=== PATIENT | female | born 1965 | race Two or more races ===

== ENCOUNTER 2017-03-11 20:21 | Emergency (ER) | payer MEDICAID ==
[~2017-03-11] VITALS: Ht 167.6 cm; Wt 84.8 kg
[~2017-03-11 20:21] MED LIST: ACETAMINOPHEN-1 EAC1 ORAL; ANUSOL-HC30 GM RC; CIPROFLOXACIN500 M2 ORAL; COLACE100 MG ORAL; LACTULOSE20 GM/301 ORAL; METRONIDAZOLE500 MG ORAL
[2017-03-11] MEDS ORDERED: NKM (20:30)
[2017-03-11] MEDS ORDERED: Ketorolac 30mg Inj IV ONE (20:45)
--- NOTE | 2017-03-11 20:50 | Emergency Room Report ---
History of Present Illness General Chief Complaint: Headache Source: Patient Present Illness [facility] The patient presents with a headache and sore throat. Headache is severe at this time. She feels it at the top of her head and pounding. She took NyQuil and this didn't help very much. She states is 10/10. Doesn't radiate. She has no neck stiffness or pain. She does have a sore throat and difficulty swallowing things. Slight cough, non-productive. This is the worst headache of her life and she doesn't usually have GARCIA. No vomit but nausea. No change bowels. No rashes, change vision, chest pain, dyspnea, wheezing. Post menopausal. 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 Nursing Documentation: PMH: Agreed, PSxH: Agreed Nursing Documentation-PMH Past Medical History: No Stated History Review of Systems All Other Systems: negative except mentioned in HPI Physical Exam Vital Signs Date Time Temp Pulse Resp B/P Pulse Ox O2 Delivery O2 Flow Rate FiO2 03/11/17 20:25 99.7 88 18 110/58 97 Room Air Sp02 EP Interpretation: reviewed, normal General Appearance: well appearing, no apparent distress, GCS 15 Head: normocephalic, atraumatic Eyes: bilateral eye EOMI, bilateral eye PERRL, bilateral eye normal inspection ENT: normal voice, moist mucus membranes, tonsillar swelling, pharyngeal erythema Neck: supple, no meningismus Respiratory: lungs clear, normal breath sounds Cardiovascular #1: regular rate, rhythm Cardiovascular #2: 2+ radial (R) Gastrointestinal: normal inspection, normal bowel sounds, non tender, no mass, non-distended Musculoskeletal: back normal, gait/station normal, normal range of motion Neurologic: alert, oriented x3, elevated guard III-XII nml as tested, motor strength/tone normal, DTRs symmetric, sensory intact, cerebellar normal, speech normal Psychiatric: mood/affect normal - but in pain Skin: normal inspection, warm/dry Medical Decision Making Diagnostic Impression: Primary Impression: Sinusitis ER Course Patient presents with sore throat fever and worst headache of life. Differential includes viral syndrome, strep pharyngitis, migraine, bleed amongst others. Exam is against meningitis. However the patient is evaluated with labs, CT, chest x-ray. The patient will be treated with IV hydration Tylenol and Toradol. Labs with normal WBC, elevated sed rate, slight elevation glucose, neg UA. CT with sinus disease, no bleed. Antibiotics begun. Patient pain free after treatment. Patient stable for outpatient observation and treatment. Laboratory Tests Test 03/11/17 21:06 White Blood Count 8.0 K/UL (4.8-10.8) Red Blood Count 4.17 M/UL (4.20-5.40) L Hemoglobin 14.0 G/DL (12.0-16.0) Hematocrit 38.2 % (37.0-47.0) Mean Corpuscular Volume 91 FL (80-99) Mean Corpuscular Hemoglobin 33.5 PG (27.0-31.0) H Mean Corpuscular Hemoglobin Concent 36.6 G/DL (32.0-36.0) H Red Cell Distribution Width 11.2 % (11.6-14.8) L Platelet Count 258 K/UL (150-450) Mean Platelet Volume 6.5 FL (6.5-10.1) Neutrophils (%) (Auto) 46.9 % (45.0-75.0) Lymphocytes (%) (Auto) 40.3 % (20.0-45.0) Monocytes (%) (Auto) 7.9 % (1.0-10.0) Eosinophils (%) (Auto) 3.6 % (0.0-3.0) H Basophils (%) (Auto) 1.3 % (0.0-2.0) Erythrocyte Sedimentation Rate 69 MM/HR (0-30) H Prothrombin Time 9.9 SEC (9.30-11.50) Prothrombin Time INR 0.9 (0.9-1.1) PTT 26 SEC (23-33) Urine Color Yellow Urine Appearance Clear Urine pH 7 (4.5-8.0) Urine Specific [place] 1.015 (1.005-1.035) Urine Protein Negative (NEGATIVE) Urine Glucose (UA) Negative (NEGATIVE) Urine Ketones Negative (NEGATIVE) Urine Occult Blood 2+ (NEGATIVE) H Urine Nitrite Negative (NEGATIVE) Urine Bilirubin Negative (NEGATIVE) Urine Urobilinogen Normal MG/DL (0.0-1.0) Urine Leukocyte Esterase Negative (NEGATIVE) Urine RBC 10-15 /HPF (0 - 2) H Urine WBC 2-4 /HPF (0 - 2) Urine Squamous Epithelial Cells Few /LPF (NONE/OCC) Urine Bacteria Few /HPF (NONE) Sodium Level 139 mEQ/L (135-145) Potassium Level 3.6 mEQ/L (3.4-4.9) Chloride Level 100 mEQ/L (98-107) Carbon Dioxide Level 26 mEQ/L (20-30) Anion Gap 13 (5-15) Blood Urea Nitrogen 21 mg/dL (7-23) Creatinine 0.6 mg/dL (0.5-0.9) Estimate Glomerular Filtration Rate > 60 mL/min (>60) Glucose Level 146 mg/dL (74-106) H Lactic Acid Level 1.10 mmol/L (0.66-2.22) Calcium Level 9.4 mg/dL (8.6-10.2) Total Bilirubin 0.2 mg/dL (0.0-1.2) Aspartate Amino Transferase (AST) 18 U/L (5-40) Alanine Aminotransferase (ALT) 21 U/L (3-33) Alkaline Phosphatase 103 U/L (35-104) Total Creatine Kinase 58 U/L (26-140) Total Protein 7.8 g/dL (6.6-8.7) Albumin 3.9 g/dL (3.5-5.2) Globulin 3.9 g/dL Albumin/Globulin Ratio 1.0 (1.0-2.7) EKG Diagnostic Results Rate: normal Rhythm: NSR ST Segments: no acute changes Rhythm Strip Diag. Results EP Interpretation: yes Rhythm: NSR, no PVC's, no ectopy CT/MRI/US Diagnostic Results CT/MRI/US Diagnostic Results : Imaging Test Ordered: head Impression nl brain, sinus disease Last Vital Signs Date Time Temp Pulse Resp B/P Pulse Ox O2 Delivery O2 Flow Rate FiO2 03/12/17 01:07 99.7 68 12 118/72 97 Room Air Status: improved Disposition: HOME, SELF-CARE Condition: Improved Scripts Guaifenesin/Codeine Phos* (ROBITUSSIN AC*) 118 Ml Liquid 1-2 TSP ORAL Q6H Y for For Cough, #118 ML 0 Refills Prov: Matt Dean M.D. 03/12/17 Levofloxacin* (LEVAQUIN*) 500 Mg Tablet 500 MG ORAL DAILY, #7 TAB Prov: Matt Dean M.D. 03/12/17 Matt Dean M.D. Mar 11, 2017 20:50
[2017-03-11 21:34] LABS: BASOPHILS % (AUTO) 1.3 % (0.0-2.0); EOSINOPHILS % (AUTO) 3.6 % (0.0-3.0); LYMPHOCYTES % (AUTO) 40.3 % (20.0-45.0); MEAN CORPUSCULAR HEMOGLOBIN 33.5 PG (27.0-31.0); MEAN CORPUSCULAR HGB CONC 36.6 G/DL (32.0-36.0); MEAN CORPUSCULAR VOLUME 91 FL (80-99); MEAN PLATELET VOLUME 6.5 FL (6.5-10.1); MONOCYTES % (AUTO) 7.9 % (1.0-10.0); NEUTROPHILS % (AUTO) 46.9 % (45.0-75.0); PLATELET COUNT 258 K/UL (150-450); RED BLOOD COUNT 4.17 M/UL (4.20-5.40); RED CELL DISTRIBUTION WIDTH 11.2 % (11.6-14.8)
[2017-03-11 21:45] LABS: INR 0.9 (0.9-1.1); PROTHROMBIN TIME 9.9 SEC (9.30-11.50)
[2017-03-11 21:51] LABS: ALANINE AMINOTRANSFERASE 21 U/L (3-33); ANION GAP 13 (5-15); ASPARTATE AMINO TRANSFERASE 18 U/L (5-40); CALCIUM 9.4 mg/dL (8.6-10.2); CARBON DIOXIDE 26 mEQ/L (20-30); CHLORIDE 100 mEQ/L (98-107); CREATININE 0.6 mg/dL (0.5-0.9); GLOMERULAR FILTRATION RATE > 60 mL/min (>60); HEMOLYSIS 3; POTASSIUM 3.6 mEQ/L (3.4-4.9); SODIUM 139 mEQ/L (135-145); TOTAL PROTEIN 7.8 g/dL (6.6-8.7)
[2017-03-11 21:57] LABS: APPEARANCE,URINE CLEAR; KETONES,URINE NEGATIVE (NEGATIVE); LEUKOCYTE ESTERASE ,URINE NEGATIVE (NEGATIVE); NITRITE,URINE NEGATIVE (NEGATIVE); PH,URINE 7 (4.5-8.0); PROTEIN,URINE NEGATIVE (NEGATIVE); UROBILINOGEN,URINE NORMAL MG/DL (0.0-1.0)
[2017-03-11 22:04] LABS: BACTERIA,URINE FEW /HPF; SQUAMOUS EPITHELIAL CELL,UR FEW /LPF (NONE/OCC)
[2017-03-11 22:07] VITALS: BP 111/64
[2017-03-11 23:02] LABS: ERYTHROCYTE SEDIMENTATION RATE 69 MM/HR (0-30)
[2017-03-12] MEDS ORDERED: Levofloxacin 500mg tab ORAL ONE
[2017-03-12] MEDS ORDERED: LEVAQUIN500 MG ORAL (00:49)
[2017-03-12] MEDS ORDERED: GUAIFENESIN-CO118 M1 ORAL (00:49)
[2017-03-12 01:03] VITALS: BP 118/72
[2017-03-12 01:07] VITALS: BP 118/72
--- NOTE | 2017-03-12 10:55 | Diagnostic Imaging Report ---
Indication: Headache Technique: Contiguous 5 mm thick transaxial imaging of the head obtained in a Siemens Sensation [address] scanner. Soft tissue and bone windows generated. Total Dose length Product (DLP): [address] Dose Index Volume (CTDIvol): 70.38 mGy Comparison: none Findings: The size and configuration of the cortical sulci, basal cisterns, and ventricles are within normal limits for age. There is no mass effect, midline shift, or edema identified. There is no evidence of acute hemorrhage or abnormal intra-axial or extra-axial fluid collections. The bones and soft tissues are unremarkable. Mucosal thickening noted within the paranasal sinuses. Impression: No mass effect, edema or acute bleed. The CT scanner at [facility] is accredited by the [employer] and the scans are performed using dose optimization techniques as appropriate to a performed exam including Automatic Exposure control.
--- NOTE | 2017-03-13 07:27 | Cardiology Report ---
APPROVED REPORT EKG Measurement Heart [id number] CO [id number] Normal sinus rhythm Normal ECG
== END 2017-03-12 01:07 | disposition home or self-care (01) ==
LOC: EMR 20:40
DX: J32.9 Chronic sinusitis, unspecified (principal)
CPT/HCPCS: 36415; 70450; 80053; 81003; 82550; 83605; 85025; 85610; 85651; 85730; 93005; 96360; 96361; 96374; 96375; 99284; J1885

== ENCOUNTER 2020-04-25 08:32 | Emergency (ER) | payer MEDICAID ==
[~2020-04-25] VITALS: Ht 160 cm; Wt 81.6 kg
[~2020-04-25 08:32] MED LIST changes: +GUAIFENESIN-CO118 M1 ORAL; +LEVAQUIN500 MG ORAL; +NKM
[2020-04-25 08:56] VITALS: BP 149/76
[2020-04-25 10:46] LABS: APPEARANCE,URINE CLEAR; GLUCOSE, URINE (UA) NEGATIVE (NEGATIVE); KETONES,URINE NEGATIVE (NEGATIVE); LEUKOCYTE ESTERASE ,URINE NEGATIVE (NEGATIVE); PH,URINE 8 (4.5-8.0); PROTEIN,URINE NEGATIVE (NEGATIVE); UROBILINOGEN,URINE 1 MG/DL (0.0-1.0)
[2020-04-25] MEDS ORDERED: CEPHALEXIN500 MG ORAL (10:49)
[2020-04-25] MEDS ORDERED: PHENAZOPYRIDIN200 MG ORAL (10:49)
[2020-04-25 11:06] LABS: BILIRUBIN, URINE NEGATIVE (NEGATIVE); COLOR,URINE YELLOW; NITRITE,URINE NEGATIVE (NEGATIVE)
--- NOTE | 2020-04-25 11:13 | Emergency Room Report ---
History of Present Illness General Chief Complaint: Female Urogenital Problems Source: Patient Present Illness HPI History of present illness: 55-year-old female with no prior medical history presents with chief complaint of dysuria (feels burning) and increased frequency of urination. The patient's symptoms were gradual onset, severity was moderate, duration since 2 days. Denies hematuria, trauma, abdominal pain, CP, back pain, constipation, melena, hematochezia, SOB, fever, or hx of kidney stones. Patient has been taking azo at home with mild relief of dysuria. Past medical history: Diverticulitis Past surgical history: Denies Smoking: Denies Alcohol use: Denies Drug use: Denies Review of systems: CONST: No fevers or chills, No night sweats PULMONARY: No productive cough, No shortness of breath CARDIAC: No chest pain, No palpitations GI: No vomiting, No diarrhea , No melena_or_BRBPR : + dysuria, No hematuria, No discharge NEURO: No new_focal_weakness_or_numbness, No confusion, No vision changes 14 point Review of Systems is otherwise negative except per HPI Physical Exam: GENERAL: Awake_alert_ nontoxic, no acute distress Spo2 97% on [RA], [normal] EYES: Extraocular muscles are intact. Conjunctivae clear. Lids without swelling ENT: External nose and ear normal_in_appearance. Oropharynx clear. Head_ atraumatic, Moist_oral_mucosa NECK: No JVD. No meningismus. No thyromegaly. Supple. Trachea midline RESP: Normal respiratory effort. Symmetric rise. No stridor. Clear_to_ auscultation_No_rales_No_wheezes CARDIAC: Regular rate and regular rhythm on_auscultation No_significant pedal edema. Pulses +2/4 bilateral UE and LE. ABDOMEN: Soft. Nondistended. Nontender_No_rebound_or_guarding. No CVA TTP. MSK: Normal muscle tone, without rigidity. Extremities without asymmetric deformity or swelling. SKIN: Warm and dry. No visible cyanosis or pallor NEUROLOGIC: Alert, oriented x3. Motor_and_sensation_grossly_intact. No truncal ataxia. Gait_normal Psych: Normal mood and affect, normal judgment and insight - COORDINATION OF CARE Case was discussed with: Patient Any labs that were ordered were interpreted as part of the medical decision making: Medical Decision Making/Plan: Differential diagnosis includes cystitis, pyelonephritis, ureterolithiasis, vaginitis among others. Urinalysis was obtained which shows signs of mild infection. +bacteria, 5RBC. No flank pain or fever to suggest upper infection or pyelonephritis. Presentation does not appear to be consistent with kidney stone or AAA. Abdomen is soft and non tender, non peritoneal. Pt able to tolerate PO food and fluid upon discharge. Patient has no vaginal discharge or history of STDs, no evidence of vaginitis or PID at this time point. Will dc with keflex and pyridium for dysuria w cystitis. Patient was informed of her incidental finding of hematuria and educated to seek follow up care with PMD regarding findings. Pt verbalizes her understanding. Pertinent results reviewed with the patient. I educated the patient on the current treatment plan including the risks, benefits, and alternatives. I also discussed the extent and limitations of the current evaluation. The patient expressed understanding and agreement with plan. I recommended PMD follow-up within 1-3 days. Also advised that the patient return to the Emergency Department as soon as possible if they experience any new, persistent, or worsening symptoms. Allergies: Coded Allergies: No Known Allergies (Unverified , 05/03/15) COVID-19 Screening Contact w/high risk pt: No Experienced COVID-19 symptoms?: No COVID-19 Testing performed CHIEF NURSING OFFICER: No Nursing Documentation-PMH Past Medical History: No Stated History Physical Exam Vital Signs Date Time Temp Pulse Resp B/P (MAP) Pulse Ox O2 Delivery O2 Flow Rate FiO2 04/25/20 08:41 98.4 60 16 149/76 (100) 95 Room Air Sp02 EP Interpretation: reviewed, normal Medical Decision Making Diagnostic Impression: Primary Impression: Dysuria Additional Impression: Cystitis Last Vital Signs Date Time Temp Pulse Resp B/P (MAP) Pulse Ox O2 Delivery O2 Flow Rate FiO2 04/25/20 08:56 98.4 75 16 149/76 95 Room Air Disposition: HOME, SELF-CARE Admit Decision Time: 10:00 Condition: Stable Scripts Phenazopyridine Hcl* (PYRIDIUM*) 200 Mg Tablet 200 MG ORAL THREE TIMES A DAY, #14 TAB 0 Refills Prov: Samantha Quinones D.Wil 04/25/20 Cephalexin* (KEFLEX*) 500 Mg Capsule 500 MG ORAL EVERY 12 HOURS, #14 CAP 0 Refills Prov: Samantha Quinones D.O. 04/25/20 Referrals: [facility],REFERRING (PCP) Patient Instructions: Urinary Tract Infection Additional Instructions: Instructions for patient/human resources team member: Follow up with your physician in 1- 2 days. Follow-up with your doctor sooner if your condition requires a more timely clinical reevaluation. Return to the emergency department immediately if you feel that your condition is worsening or if you have any new or concerning symptoms. Review your discharge instructions and take any prescriptions given as instructed. Samantha Quinones D.O. Apr 25, 2020 11:13
[2020-04-25 11:30] VITALS: BP 149/76
== END 2020-04-25 11:35 | disposition home or self-care (01) ==
LOC: EMR 09:25
DX: N30.90 Cystitis, unspecified without hematuria (principal)
CPT/HCPCS: 81003; Z7502; 99282